=== PATIENT | female | born 1970 | race Caucasian/White ===

== ENCOUNTER 2018-02-27 20:28 | Emergency (ER) | payer BC, OTHER ==
[2018-02-27] MEDS ORDERED: Bacitracin Zinc 1 Packet ONE (20:56)
--- NOTE | 2018-02-27 21:14 | RAD ---
RIGHT FOOT THREE VIEWS: History: Injury, right foot pain. FINDINGS/IMPRESSION: There are post op changes and screws in the distal aspect of the right fifth metatarsal. No acute fra cture or dislocation is identified. A plantar calcaneal spur is present. POS: [facility]
== END 2018-02-27 21:36 | disposition home or self-care (01) ==
LOC: ERS 20:28
DX: S93.601A Unspecified sprain of right foot, initial encounter (principal); Z23 Encounter for immunization; W20.8XXA Other cause of strike by thrown, projected or falling object, initial encounter; Y93.H3 Activity, building and construction
CPT/HCPCS: 90471

== ENCOUNTER 2018-10-28 10:50 | Outpatient (CLI) | payer OTHER | END 2018-10-28 10:51 | disposition home or self-care (01) | LOC: BICMAMMO 10:50 | PROVIDERS: ATTEND Family Medicine | DX: Z12.31 Encounter for screening mammogram for malignant neoplasm of breast (principal) | CPT/HCPCS: 77063; 77067 ==

== ENCOUNTER 2020-01-16 10:38 | Outpatient (CLI) | payer OTHER ==
--- NOTE | 2020-01-16 10:54 | RAD ---
XR Knee Rt 4 View STANDARD HISTORY: Acute pain of the right knee FINDINGS: No acute fracture or dislocation is identified. A small joint effusion may be present.
== END 2020-01-16 10:39 | disposition home or self-care (01) ==
LOC: BICRAD 10:38
PROVIDERS: ATTEND Family Medicine
DX: M25.561 Pain in right knee (principal)

== ENCOUNTER 2020-02-01 15:17 | Outpatient (CLI) | payer OTHER ==
--- NOTE | 2020-02-01 16:21 | MRI ---
EXAM: RIGHT KNEE MRI WITHOUT IV CONTRAST: 02/01/20 HISTORY: Acute right knee pain. Multiplanar and multisequence MRI examination of the right knee is performed. There is some subtle c hondromalacia patellar changes involving the medial patellar facet but no full thickness fissures. No abnormal joint effusion. There is some fluid within a small popliteal fossa cyst as well as some flu id extending medially and caudally from the popliteal fossa cyst along the edge of the medial aspect of the medial gastrocnemius muscle, evidence for prior popliteal fossa cyst rupture. There is some lofton btle irregularity of the free edge of the posterior root of the lateral meniscus probably fraying or subtle subsurface free edge tear. The medial meniscus appears unremarkable. Cruciate ligaments and co llateral ligament complexes and quadriceps and patellar tendons appear intact. No significant acute o steochondral defect or abnormal marrow signal. IMPRESSION: Minimal peripheral free edge irregularity of the posterior root lateral meniscus. Evidence for minima l popliteal fossa cyst and evidence for prior popliteal fossa cyst rupture with very minimal fluid ex tending caudally along the medial gastrocnemius muscle. Mild fibrillation of the patellar cartilage m edial patellar facet evidence for mild chondromalacia patella. No evidence for other significant acut e internal derangement. POS: [facility]
== END 2020-02-01 15:18 | disposition home or self-care (01) ==
LOC: BICMRI 15:17
PROVIDERS: ATTEND Orthopaedic Surgery
DX: M25.561 Pain in right knee (principal); M22.41 Chondromalacia patellae, right knee; M66.0 Rupture of popliteal cyst; M94.8X6 Other specified disorders of cartilage, lower leg; M23.351 Other meniscus derangements, posterior horn of lateral meniscus, right knee

== ENCOUNTER 2021-08-20 10:15 | Outpatient (CLI) | payer OTHER ==
[2021-08-20 22:21] LABS: SARS-CoV-2 PCR by NAA Not Detected (NotDetected)
== END 2021-08-20 10:16 | disposition home or self-care (01) ==
LOC: LABBT 10:15
PROVIDERS: ATTEND Orthopaedic Surgery
DX: Z01.812 Encounter for preprocedural laboratory examination (principal); S82.851A Displaced trimalleolar fracture of right lower leg, initial encounter for closed fracture; Z20.822 Contact with and (suspected) exposure to COVID-19
CPT/HCPCS: U0003; U0005

== ENCOUNTER 2021-08-25 10:31 | Day surgery (SDC) | payer OTHER ==
[2021-08-22 11:46] VITALS: BMI 33.3
[2021-08-25] MEDS ORDERED: Clindamycin/D5W 900 mg/50 ml Premix Bag ONE (10:59)
[2021-08-25] MEDS ORDERED: Levofloxacin 500 mg/D5W 100 ml Premix Bag ONE (10:59)
[2021-08-25] MEDS ORDERED: Midazolam HCl 2 mg/2 ml Vial ONE ×2 (11:45→12:29)
[2021-08-25] MEDS ORDERED: Fentanyl 100 MCG/2 ML VIAL ONE ×8 (11:46→17:10)
[2021-08-25] MEDS ORDERED: diphenhydrAMINE 50 MG/ML VIAL ONE (11:47)
[2021-08-25] MEDS ORDERED: Promethazine HCl 25 MG/ML VIAL IM PRN (12:00)
[2021-08-25] MEDS ORDERED: Ropivacaine 0.2% 550 ML 550 ML NERVE BLCK SCH (12:00)
[2021-08-25] MEDS ORDERED: Ketorolac Tromethamine 30 MG/ML VIAL IVP SCH (12:00)
[2021-08-25] MEDS ORDERED: traMADol HCl 50 MG TAB PO PRN ×2 (12:00)
[2021-08-25] MEDS ORDERED: Ondansetron PF 4 MG/2 ML Vial IVP PRN (12:00)
[2021-08-25] MEDS ORDERED: Zolpidem Tartrate 5 MG TAB PO PRN (12:00)
[2021-08-25] MEDS ORDERED: Fentanyl 100 MCG/2 ML VIAL SLOW IVP PRN (12:01)
[2021-08-25] MEDS ORDERED: Bupivacaine HCl 0.5%/Epinephrine 1:200,000/PF 30 ml Vial ONE (12:52)
[2021-08-25] MEDS ORDERED: Lidocaine 1% PF 5 ML VIAL ONE (12:52)
[2021-08-25] MEDS ORDERED: Ondansetron PF 4 MG/2 ML Vial ONE (12:52)
[2021-08-25] MEDS ORDERED: PROPOFOL 200 MG/20 ML VIAL ONE (12:52)
[2021-08-25] MEDS ORDERED: Ketorolac Tromethamine 30 MG/ML VIAL ONE (14:53)
== END 2021-08-25 17:50 | disposition home or self-care (01) ==
LOC: SDC 10:31
PROVIDERS: ATTEND Orthopaedic Surgery
PROC: 0QSJ04Z Reposition Right Fibula with Internal Fixation Device, Open Approach (ICD-10-PCS; principal; 2021-08-25)
PROC: 0QSG04Z Reposition Right Tibia with Internal Fixation Device, Open Approach (ICD-10-PCS; principal; 2021-08-25)
PROC: 3E0T3BZ Introduction of Anesthetic Agent into Peripheral Nerves and Plexi, Percutaneous Approach (ICD-10-PCS; principal; 2021-08-25)
DX: S82.851A Displaced trimalleolar fracture of right lower leg, initial encounter for closed fracture (principal); E66.9 Obesity, unspecified; Z68.33 Body mass index [BMI] 33.0-33.9, adult; Z79.899 Other long term (current) drug therapy; Z88.0 Allergy status to penicillin; Z88.1 Allergy status to other antibiotic agents; Z88.5 Allergy status to narcotic agent; Z91.030 Bee allergy status; Z91.048 Other nonmedicinal substance allergy status; X50.1XXA Overexertion from prolonged static or awkward postures, initial encounter
CPT/HCPCS: 76000; A4306; C1713; J1200; J1885; J1956; J2250; J2405; J2704; J2795; J3010; J3490

== ENCOUNTER 2022-03-19 16:48 | Outpatient (CLI) | payer OTHER ==
[2022-03-20 11:51] LABS: SARS-CoV-2 PCR by NAA Not Detected (NotDetected)
== END 2022-03-19 16:49 | disposition home or self-care (01) ==
LOC: LABBT 16:48
PROVIDERS: ATTEND Orthopaedic Surgery
DX: T85.848A Pain due to other internal prosthetic devices, implants and grafts, initial encounter (principal); Z20.822 Contact with and (suspected) exposure to COVID-19
CPT/HCPCS: U0003; U0005

== ENCOUNTER 2022-03-24 10:17 | Day surgery (SDC) | payer OTHER ==
[2022-03-20 16:45] VITALS: BMI 33.3
[2022-03-24] MEDS ORDERED: fentaNYL Citrate/PF 100 MCG/2 ML SYRINGE ONE (11:52)
[2022-03-24] MEDS ORDERED: Lidocaine 1% w/Epinephrine 1:100K 20 ML VIAL ONE (12:19)
[2022-03-24] MEDS ORDERED: Clindamycin/D5W 900 mg/50 ml Premix Bag ONE (13:06)
[2022-03-24] MEDS ORDERED: Lidocaine 1% PF 5 ML VIAL ONE (13:12)
[2022-03-24] MEDS ORDERED: PROPOFOL 200 MG/20 ML VIAL ONE (13:12)
[2022-03-24] MEDS ORDERED: Ondansetron PF 4 MG/2 ML Vial ONE (13:12)
[2022-03-24] MEDS ORDERED: Dexamethasone 20 MG/5 ML VIAL ONE (13:12)
[2022-03-24] MEDS ORDERED: Fentanyl 100 MCG/2 ML VIAL ONE (14:11)
== END 2022-03-24 16:12 | disposition home or self-care (01) ==
LOC: SDC 10:17
PROVIDERS: ATTEND Orthopaedic Surgery
PROC: 0SPF04Z Removal of Internal Fixation Device from Right Ankle Joint, Open Approach (ICD-10-PCS; principal; 2022-03-24)
DX: T84.84XA Pain due to internal orthopedic prosthetic devices, implants and grafts, initial encounter (principal); E66.9 Obesity, unspecified; Z68.33 Body mass index [BMI] 33.0-33.9, adult; Z88.0 Allergy status to penicillin; Z88.1 Allergy status to other antibiotic agents; Z88.5 Allergy status to narcotic agent; Z91.030 Bee allergy status; Z91.048 Other nonmedicinal substance allergy status; Y79.3 Surgical instruments, materials and orthopedic devices (including sutures) associated with adverse incidents
CPT/HCPCS: J1100; J2405; J2704; J3010; J3490